=== PATIENT | female | born 1965 | race Caucasian/White ===

== ENCOUNTER → 2020-03-12 16:04 | Outpatient (CLI) | payer OTHER, SELFPAY ==
--- NOTE | ~2020-03-12 | MM_ITS ---
EXAMINATION: MM screening facundo BI w juan carlos HISTORY: Screening TECHNIQUE: Craniocaudal and mediolateral oblique 3-D tomosynthesis images were obtained and synthetic 2-D images were generated. CAD analysis was submitted and interpreted. COMPARISON: Comparison to multiple prior studies sequentially, with oldest reviewed study dated 01/2016. BREAST PARENCHYMAL COMPOSITION: There are scattered areas of fibroglandular density. FINDINGS: There is no evidence of suspicious mass, calcification, or architectural distortion to sugg est malignancy in either breast. There has been no suspicious interval change. IMPRESSION: 1. No mammographic evidence of malignancy. 2. Recommend routine screening mammography in one year. BI-RADS Category 1: Negative Reviewed, dictated and finalized at location A.
== END ==
PROVIDERS: PCP Physician Assistant; Visit Provider Physician Assistant
DX: Z12.31 Encounter for screening mammogram for malignant neoplasm of breast (principal)
CPT/HCPCS: 77063; 77067

== ENCOUNTER → 2020-09-18 07:52 | Outpatient (CLI) | payer OTHER, SELFPAY ==
[2020-09-18 20:45] LABS: SARS-CoV-2 RNA PCR Negative
== END ==
PROVIDERS: PCP Physician Assistant; Visit Provider Podiatrist Foot & Ankle Surgery
DX: Z01.812 Encounter for preprocedural laboratory examination (principal); Z20.822 Contact with and (suspected) exposure to COVID-19
CPT/HCPCS: C9803; U0003; U0005

== ENCOUNTER 2020-09-21 01:24 | Day surgery (SDC) | payer OTHER, SELFPAY ==
[2020-09-18 08:38] VITALS: BMI 29.1
[2020-09-21] VITALS (7 sets, daily range): BP systolic 98–144; BP diastolic 58–75; PULSE 70–122; RESP 16–24; TEMP 36.5–36.8; O2SAT 96–100
--- NOTE | ~2020-09-21 | XR_ITS ---
EXAMINATION: XR surgery orthopedic EXAM DATE: 09/21/2020 12:12 INDICATION: Left ankle ORIF. TECHNIQUE: Fluoroscopy used during left ankle ORIF performed by Dr. Omid Aranda JR MD. Radiol ogist was not present for the imaging or procedure. Total fluoroscopic time of 36 seconds. The DAP for this procedure was 0.02 mGym2. A total of 3 images obtained for the exam. There is no prior primitivo dy for comparison. FINDINGS: Difficult to visualize the left fibular fracture. There is a laterally placed fibular plat e with supporting screws. Also an anchor repairing distal tibiofibular syndesmotic ligament. Alignmen t anatomic. Correlate with procedure note. IMPRESSION: Fluoroscopy used during left fibular ORIF. Reviewed, dictated and finalized at location A.
--- NOTE | 2020-09-21 07:12 | WPDHPUPDATE1 ---
History and Physical Update Update Date/Time: 09/21/20 07:12 History and Physical has been reviewed, including an updated exam of the patient. There are NO changes in the patient's condition. Risks, benefits, and alternatives have been discussed and questions answered. Patient agrees to proceed with procedure.
--- NOTE | 2020-09-21 08:21 | ECG_ITS ---
Measurements Intervals [place] Rate: 77 P: 43 [place]: 167 QRS: 53 QRSD: 97 T: 40 QT: 364 QTc: 413 Interpretive Statements SINUS RHYTHM BORDERLINE R WAVE PROGRESSION, ANTERIOR LEADS BORDERLINE ECG Electronically Signed On 09-21-2020 11:56:16 CDT by Donovan New D.O.
[2020-09-21] MEDS: LACTATED RINGERS 1,000 ML 30 ML IV CONT ×2 (09:12→12:34)
--- NOTE | 2020-09-21 09:47 | WPDANESEPPF ---
Anes - Initial Pre Proc Eval Procedure: Operation Date: 09/21/20 10:30 Proposed Procedures p Open Reduction Internal Fixation Distal Fibular Fracture Left Ankle, Syndesmotic Repair Left Ankle - Omid Aranda JR, MD Date/Time: 09/21/20 09:47 Surgeon: Omid Aranda JR, MD Pre Op Diagnosis: distal fibular fx left with displacement,syndesmot Patient Data Age: 55 Gender: F Height: 5 ft 5 in Weight: 80 kg Last Vital Signs Temp 36.8 C 09/21/20 08:50 Pulse 85 09/21/20 08:50 Resp 18 09/21/20 08:50 BP 107/60 09/21/20 08:50 Pulse Ox 99 09/21/20 08:50 Allergies Allergy/AdvReac Type Severity Reaction Status Date / Time codeine Allergy Severe Rash Verified 09/21/20 09:29 Penicillins Allergy Mild Diarrhea Verified 09/21/20 09:29 Home Medications Medication Instructions Recorded Confirmed Type atorvastatin 20 mg PO HS 09/18/20 09/21/20 History cholecalciferol (vitamin D3) 125 mcg PO DAILY 09/18/20 09/21/20 History [Vitamin D3] citalopram 20 mg PO DAILY 09/18/20 09/21/20 History levothyroxine [Euthyrox] 100 mcg PO DAILY 09/18/20 09/21/20 History lorazepam 0.5 mg PO BID PRN 09/18/20 09/21/20 History multivitamin 1 tablet PO DAILY 09/18/20 09/21/20 History Patient hx anesthesia problems: none Family hx anesthesia problems: none [facility] Past Medical History Medical History Hypothyroidism Overweight Smoker Surgical History Surgical History (Updated 09/21/20 @ 09:48 by Ed Canales MD) Status post lumbar surgery Social History Social History Smoking packs per day: 1 Smoking cigarettes per day: 20.0 Years smoked: 30 Smoking pack-years: 30.00 Smoking status: Current every day smoker Tobacco type: cigarettes Alcohol intake: current Drinks per week: 3 Substance use: current Substance use type: marijuana Other substance usage details: INDICA 5MG IN EVENING Living arrangements: with family Spiritual care concerns: No Anes - Eval Final PreProcedure Day of Procedure 09/21/20 09:47 Patient weight: overweight Heart: regular rate and rhythm Lungs: clear to auscultation Airway: Mallampati scale class II Neurological: alert and oriented Last oral intake: >/= 8 hours ASA classification: III Emergent: no Anesthetic plan: proceed Anesthesia type and monitoring: general ETT and standard monitoring Informed Consent: The patient's anesthetic plan and its attendant risks and benefits were discussed with the patient/family/POA. Questions were solicited and answers provided to the satisfaction of the patient/family/POA.
[2020-09-21] MEDS: ceFAZolin 2 GM/D5W 50 ML 2 GM/50 ML BAG IVPB (10:19)
[2020-09-21] MEDS: BUPIVACAINE HCL 0.5% PF 30 ML VIAL INFILTRATE (10:27)
[2020-09-21] MEDS: KETOROLAC 30 MG/ML VIAL (*BKC) IV PUSH (12:20)
--- NOTE | 2020-09-21 12:38 | PM.OP ---
Procedure Note - Brief Procedure Note - Brief Date of procedure: 09/21/20 Pre-op diagnosis: distal fibular fx left with displacement,syndesmot 1. Distal fibular fracture left ankle 2. Syndesmotic injury left ankle Post-op diagnosis: same Procedure performed: 1. Open reduction with internal fixation of left ankle fracture 2. Syndesmotic repair left ankle Anesthesia: GLMA, GETA and local Surgeon: Omid Aranda JR, DPM Estimated blood loss (mL): 5 Drains: No Packing: No Pathology: none sent Complications: No immediate complications Condition: stable Disposition: same day
--- NOTE | 2020-09-21 15:05 | SUR.PHASEII ---
PATIENT OPTED TO TAKE PERCOCET SOON SHE GETS HOME RATHER THAN TAKE PAIN MED HERE.
--- NOTE | 2020-09-21 16:24 | PM.PROC ---
Procedure Note - Detailed Date of procedure: 09/21/20 Pre-op diagnosis: distal fibular fx left with displacement,syndesmot 1. Displaced distal fibular fracture left ankle 2. Syndesmotic injury left ankle Post-op diagnosis: same Procedure performed: 1. Open reduction with internal fixation of distal fibular fracture left ankle 2. Syndesmotic stabilization left ankle Implants: 1. Arthrex Tightrope system 2. Arthrex 5 hole fibular plate with 3 (2.7 locking) and 3 (3.5mm locking) screws 3. Arthrex 3.5mm Cortical interfragmentary screw Anesthesia: GETA and local Surgeon: Omid Aranda JR, DPM Estimated blood loss (mL): 5 Drains: No Packing: No Pathology: none sent Complications: No immediate complications Condition: stable Disposition: same day Findings: Under mild sedation, the patient was brought in to the operating room, placed on the operating table in the lateral decubitus position. A pneumatic thigh tourniquet was placed about the patient's left thigh. Following general anesthesia, local anesthesia was obtained about the left leg foot utilizing 40 mL of a one to one mix of Exparel with 0.5% Marcaine plain just inferior and posterior to the neck of the fibula and along the medial ankle to block the saphenous nerve. The foot was then scrubbed, prepped, and draped in the usual aseptic manner. An Esmarch bandage was then used to exsanguinate the patient's right foot and ankle and the pneumatic thigh tourniquet was then inflated. An incision was made along the lateral fibula starting along the distal aspect extending aproximately 10cm. The incision was continued deep down through the subcutaneous tissues using sharp and blunt dissection. All bleeders were ligated and cauterized as necessary. I made a periosteal incision exposing the long spiral oblique fracture, there was some shortening and posterior displacent of the distal fibula, I bone reduction clamp was used to reduce the distal fibula bringing it out to lenght. I used an Arthex 3.5 mm cortical screw, utilizing interfragmentary screw technique, to compress the fracture site. Next I utilized an Athrex 5 hole plate along with 3 distal 2.7mm locking screws and 3 proximal 3.5mm locking screws to fixate the neutralization plate. Fluoroscopy was used to make sure the fracture was adequately compressed and distal fibular fracture reduced and finally that the plate was anatomically positioned. The hook test indicated syndesmotic widening so I utilized the Arthrex Tightrope system through the proximal larger 3.5mm screw hole in the 5 hole plate to reduce the syndesmotic diastasis utilizing standard principles and techniques under live fluroscopy. Final images demonstated that the ankle mortise was congruous both medially and laterally with the increase of lateral gutter spaced now reduced compared to pre op. Next, the periosteum was reapproximated with 3-0 Vicryl and the subcutaneous structures were reapproximated and coapted utilizing 4-0 Vicryl. Next, the skin was reapproximated and coapted utilizing 4-0 Monocryl in running subcuticular suture fashion technique. Upon completion of the procedure, the incision was dressed with 1/4 inch Steri Strips, Adaptic, 4x4s, Kerlix, and Coban. The pneumatic thigh tourniquet was then deflated and a prompt hyperemic response was noted to all digits of the affected foot. The posterior splint was then applied. The patient did very well with the procedure and the anesthesia. The patient was transferred to the recovery room with vital signs stable and vascular status intact to all toes of the affected foot. Following a period of postoperative monitoring, the patient will be discharged home on the following written and oral postoperative instructions: 1. The patient should keep the dressing clean, dry, and intact. Use a cast protector bag with showers. 2. The patient will be strictly nonweightbearing with a knee scooter. 3. Patient should ice and elevat
== END 2020-09-21 14:15 | disposition home or self-care (01) ==
PROVIDERS: PCP Physician Assistant; Visit Provider Podiatrist Foot & Ankle Surgery
PROC: (CPT 28485; principal; 2020-09-21 10:30)
DX: S82.832A Other fracture of upper and lower end of left fibula, initial encounter for closed fracture (principal); S93.432A Sprain of tibiofibular ligament of left ankle, initial encounter; W10.1XXA Fall (on)(from) sidewalk curb, initial encounter; F12.90 Cannabis use, unspecified, uncomplicated; E03.9 Hypothyroidism, unspecified; M19.90 Unspecified osteoarthritis, unspecified site; F17.210 Nicotine dependence, cigarettes, uncomplicated
CPT/HCPCS: 27792; 27829; 93005; C1713; C1769; C9290; C9803; J0131; J0690; J1100; J1885; J2250; J2405; J2704; J2710; J3010; J7120; U0003; U0005

== ENCOUNTER → 2021-03-26 12:00 | Outpatient (CLI) | payer OTHER, SELFPAY ==
--- NOTE | ~2021-03-26 | MM_ITS ---
EXAMINATION: MM screening facundo BI w juan carlos HISTORY: Screening mammogram TECHNIQUE: Craniocaudal and mediolateral oblique 3-D tomosynthesis images were obtained and synthetic 2-D images were generated. CAD analysis was submitted and interpreted. COMPARISON: 03/12/2020, 11/11/2018, 05/25/2017 bilateral digital screening mammogram examinations BREAST PARENCHYMAL COMPOSITION: There are scattered areas of fibroglandular density. FINDINGS: There is no evidence of suspicious mass, calcification, or architectural distortion to sugg est malignancy in either breast. There has been no suspicious interval change. IMPRESSION: 1. No mammographic evidence of malignancy. 2. Recommend routine screening mammography in one year. BI-RADS Category 1: Negative Reviewed, dictated and finalized at location A.
--- NOTE | ~2021-03-26 | DEXA_ITS ---
Bone Density Report Name: Nivia Sweet Age: 55 Sex: Female Ethnicity: White Date of : 1965 Indication: postmenopausal; screening for osteoporosis; prior fracture; Referring Provider: ISIDRO BLANCO Study: Bone densitometry was performed. Exam Date: March 26, 2021 Accession number: [id number] Bone Density: Region BMD T-score Z-score Classification AP Spine (L1-L4) 0.833 -1.9 -0.7 Osteopenia Femoral Neck (Left) 0.574 -2.5 -1.3 Osteoporosis Total Hip (Left) 0.694 -2.0 -1.2 Osteopenia Femoral Neck (Right) 0.653 -1.8 -0.6 Osteopenia Total Hip (Right) 0.785 -1.3 -0.5 Osteopenia Total Hip Mean 0.740 -1.7 -0.9 Osteopenia World Health Organization criteria for BMD impression classify patients as: Normal (T-score at or above -1.0), Osteopenia (T-score between -1.0 and -2.5), or Osteoporosis (T-score at or below -2.5). 10-year Fracture Risk: FRAX not reported because: Some T-score for Spine Total or Hip Total or Femoral Neck at or below -2.5 Clinical Information Provided by Patient: Has had a low trauma fracture Smokes Has used the following medications: Vitamin D, MTV, LEVOTHYROXINE Patient maximum height was 65.0 Menopause Age: 45 No regular weight bearing exercise Drinks caffeinated beverages Onset of menses at age 9 Number of children 2 Impression: The patient has established osteoporosis, based on the Left Femoral Neck T-score and the existence of a prior fracture. The patient has risk factors, including: smoking, previous fracture. Discussion: HIGH RISK OF FRACTURE. BONE DENSITY IS UNDESIRABLY LOW AT ONE OR MORE SKELETAL SITES, CONSISTENT WITH POSTMENOPAUSAL OSTEOPOROSIS. This patient's lowest T-score, in a patient who has previously fractured, meets the World Health Organization's (WHO) criteria for severe osteoporosis. In untreated patients, the risk of osteoporotic fracture increases approximately two-fold for each 1.0 SD decrease in T-score. Low bone density is not the only risk factor for fracture; also consider factors such as patient's age, frailty or poor health, risk of falling, risk of injury, previous osteoporotic fracture, family history of osteoporosis, cigarette smoking, low body weight, etc. Not everyone with low bone mineral density has osteoporosis; osteomalacia and other metabolic bone disorders should also be considered. Patients who have osteoporosis should be evaluated for specific diseases and conditions (secondary causes) that may cause or contribute to bone loss. The [place] [employer]ocrinologists (AACE) and National Osteoporosis Foundation (NOF) recommend pharmacologic intervention for all postmenopausal women whose T-score is in this range. The patient should follow a healthful lifestyle (good nutrition with adequate calcium and vitamin D, and
== END ==
PROVIDERS: PCP Physician Assistant; Visit Provider Obstetrics & Gynecology
DX: Z12.31 Encounter for screening mammogram for malignant neoplasm of breast (principal); Z13.820 Encounter for screening for osteoporosis; M81.0 Age-related osteoporosis without current pathological fracture; M85.852 Other specified disorders of bone density and structure, left thigh; M85.88 Other specified disorders of bone density and structure, other site
CPT/HCPCS: 77063; 77067; 77080

== ENCOUNTER 2021-08-12 00:27 | Day surgery (SDC) | payer OTHER, SELFPAY ==
[2021-07-31 14:00] VITALS: BMI 28.2
--- NOTE | 2021-08-11 12:11 | WPDANESEPP ---
Anes - Eval Pre Procedure Procedure: Operation Date: 08/12/21 09:00 Proposed Procedures p Screening Colonoscopy - Ean Balbuena MD Date/Time: 08/11/21 12:11 Pre Op Diagnosis: hx of colon polyps Patient Data Age: 56 Gender: F Height: 1.65 m Weight: 77 kg Allergies Allergy/AdvReac Type Severity Reaction Status Date / Time codeine Allergy Severe Rash, Verified 07/31/21 13:58 Nausea Penicillins Allergy Mild Diarrhea, Verified 07/31/21 13:58 Nausea clarithromycin AdvReac Nausea Verified 07/31/21 13:58 Home Medications Medication Instructions Recorded Confirmed Type atorvastatin 20 mg PO HS 09/18/20 07/31/21 History cholecalciferol (vitamin D3) 125 mcg PO DAILY 09/18/20 07/31/21 History [Vitamin D3] citalopram 20 mg PO DAILY 09/18/20 07/31/21 History levothyroxine [Euthyrox] 100 mcg PO DAILY 09/18/20 07/31/21 History lorazepam 0.5 mg PO BID PRN 09/18/20 07/31/21 History biotin 1 mg capsule 1 mg PO DAILY PRN 11/07/20 07/31/21 History multivitamin 1 tablet PO DAILY PRN 11/07/20 07/31/21 History ibandronate 150 mg tablet 150 mg PO MONTHLY #3 tablet 04/15/21 07/31/21 Rx ibuprofen 800 mg PO Q6H PRN 07/31/21 07/31/21 History Patient hx anesthesia problems: none Family hx anesthesia problems: none Results Review: All pre-operative results and documents have been reviewed as part of the pre-operative evaluation. FORMERLY [facility] Past Medical History Medical History Anxiety Arthritis Degeneration of lumbar intervertebral disc Depression Diverticulitis Elective x2 Herpes zoster Hyperlipidemia Hypothyroidism Vaginal delivery x2 Surgical History Surgical History History of ankle surgery 2020 History of bilateral tubal ligation 1996 Status post lumbar surgery 2017 Family History Family History Father Depression Anxiety Mother Anxiety Depression Thyroid disorder Arthritis Hyperlipidemia Son Anxiety Depression Grandparent Alcoholism Heart problem Mother Family history of elevated blood lipids Family history of thyroid disease Grandparent Diabetes mellitus Family history of alcoholism Father Family history of blood dyscrasia Family history of anemia Social History Social History Smoking packs per day: 1 Smoking cigarettes per day: 20.0 Years smoked: 30 Smoking pack-years: 30.00 Smoking status: Current every day smoker Tobacco type: cigarettes Second hand tobacco smoke exposure: Yes Smoking end date: 06/08/11 Alcohol intake: current Drinks per week: 2 Substance use: current Substance use type: marijuana Other substance usage details: daily Living arrangements: with family Spiritual care concerns: No Exam Day of Procedure 08/11/21 12:11
[2021-08-12 07:55] VITALS: BP 114/62; PULSE 73; RESP 20; TEMP 36.7; O2SAT 97; BMI 27.9
--- NOTE | 2021-08-12 08:12 | WPDANESEFPP ---
Anes - Eval Final PreProcedure Day of Procedure 08/12/21 08:12 Patient weight: overweight Heart: regular rate and rhythm Lungs: clear to auscultation and normal air movement Airway: Mallampati scale class II Neurological: alert and oriented Last oral intake: >/= 8 hours ASA classification: III Emergent: no Anesthetic plan: proceed Anesthesia type and monitoring: general GIVS and standard monitoring Results Review: All pre-operative results and documents have been reviewed as part of the pre-operative evaluation. Informed Consent: The patient's anesthetic plan and its attendant risks and benefits were discussed with the patient/family/POA. Questions were solicited and answers provided to the satisfaction of the patient/family/POA.
[2021-08-12] MEDS: LACTATED RINGERS 1,000 ML 150 ML IV CONT (08:16)
--- NOTE | 2021-08-12 08:38 | PM.HPGS ---
History of Present Illness History of Present Illness Consent: Risks, benefits, and alternatives have been discussed and questions answered. Patient agrees to proceed with procedure. Chief complaint: hx of colon polyps Narrative: Nivia Kelsey is a 56 year old female with colon polyp about 5-6 years ago. Review of Systems Constitutional: Constitutional: Denies headache(s) and Denies weakness Eyes: Eyes: Denies blurry vision ENT: Reports Normal hearing present, Denies headache(s) and Denies neck pain Cardiovascular: Cardiovascular: Denies chest pain and Denies dyspnea Respiratory: Respiratory: Denies dyspnea Gastrointestinal: Gastrointestinal: Reports no additional gastrointestinal complaints Genitourinary: Genitourinary: Denies dysuria Musculoskeletal: Musculoskeletal: Denies neck pain Integumentary/Breasts: Skin/Breast: Denies dry skin Neurologic: Reports Normal hearing present, Denies headache(s) and Denies weakness Psychiatric: Psychiatric: Denies anxiety Endocrine: Endocrine: Denies change in body appearance Hematologic/Lymphatic: Hematologic/Lymphatic: Denies easy bleeding Allergic/Immunologic: Allergic/Immunologic: Denies urticaria PMFSH Past Medical History Medical History (Updated 08/12/21 @ 08:38 by Ean Balbuena MD) Anxiety Arthritis Colon polyp Degeneration of lumbar intervertebral disc Depression Diverticulitis Elective x2 Herpes zoster Hyperlipidemia Hypothyroidism Vaginal delivery x2 Surgical History Surgical History History of ankle surgery 2020 History of bilateral tubal ligation 1996 Status post lumbar surgery 2017 Family History Family History Father Depression Anxiety Mother Anxiety Depression Thyroid disorder Arthritis Hyperlipidemia Son Anxiety Depression Grandparent Alcoholism Heart problem Mother Family history of elevated blood lipids Family history of thyroid disease Grandparent Diabetes mellitus Family history of alcoholism Father Family history of blood dyscrasia Family history of anemia Social History Social History Smoking packs per day: 1 Smoking cigarettes per day: 20.0 Years smoked: 30 Smoking pack-years: 30.00 Smoking status: Current every day smoker Tobacco type: cigarettes Second hand tobacco smoke exposure: Yes Smoking end date: 06/08/11 Alcohol intake: current Drinks per week: 2 Substance use: current Substance use type: marijuana Other substance usage details: daily Living arrangements: with family Spiritual care concerns: No Meds Home Medications and Allergies Home Medications Medication Instructions Recorded Confirmed Type atorvastatin 20 mg PO HS 09/18/20 08/12/21 History cholecalciferol (vitamin D3) 125 mcg PO DAILY 09/18/20 08/12/21 History [Vitamin D3] citalopram 20 mg PO DAILY 09/18/20 08/12/21 History levothyroxine [Euthyrox] 100 mcg PO DAILY 09/18/20 08/12/21 History lorazepam 0.5 mg PO BID PRN 09/18/20 08/12/21 History biotin 1 mg capsule 1 mg PO DAILY PRN 11/07/20 08/12/21 History multivitamin 1 tablet PO DAILY PRN 11/07/20 08/12/21 History ibandronate 150 mg tablet 150 mg PO MONTHLY #3 tablet 04/15/21 08/12/21 Rx ibuprofen 800 mg PO Q6H PRN 07/31/21 08/12/21 History Allergies Allergy/AdvReac Type Severity Reaction Status Date / Time codeine Allergy Severe Rash, Verified 08/12/21 08:04 Nausea Penicillins Allergy Mild Diarrhea, Verified 08/12/21 08:04 Nausea clarithromycin AdvReac Nausea Verified 08/12/21 08:04 Vital Signs Vital Signs - 24 hr 08/12/21 07:55 Temperature 98.1 F Pulse Rate 73 Respiratory Rate 20 Blood Pressure 114/62 Pulse Oximetry 97 Exam Const: General: comfortable and no acute distress HENMT:
[2021-08-12 09:04] VITALS: BP 111/57; PULSE 70; RESP 21; O2SAT 91
[2021-08-12 09:14] VITALS: BP 114/72; PULSE 69; RESP 18; O2SAT 93
[2021-08-12 09:24] VITALS: BP 100/77; PULSE 69; RESP 20; O2SAT 92
== END 2021-08-12 09:38 | disposition home or self-care (01) ==
PROVIDERS: PCP Physician Assistant; Visit Provider Internal Medicine Gastroenterology
PROC: 0DJD8ZZ Inspection of Lower Intestinal Tract, Via Natural or Artificial Opening Endoscopic (ICD-10-PCS; CPT 45378; principal; 2021-08-12 09:00)
DX: Z12.11 Encounter for screening for malignant neoplasm of colon (principal); D12.4 Benign neoplasm of descending colon; D12.3 Benign neoplasm of transverse colon; K57.30 Diverticulosis of large intestine without perforation or abscess without bleeding; M19.90 Unspecified osteoarthritis, unspecified site; M47.816 Spondylosis without myelopathy or radiculopathy, lumbar region; F41.8 Other specified anxiety disorders; K57.92 Diverticulitis of intestine, part unspecified, without perforation or abscess without bleeding; E78.5 Hyperlipidemia, unspecified; E03.9 Hypothyroidism, unspecified; F17.210 Nicotine dependence, cigarettes, uncomplicated; F12.90 Cannabis use, unspecified, uncomplicated
CPT/HCPCS: 45385; 88305; J2704; J7120

== ENCOUNTER 2022-07-03 20:10 | Emergency (ER) | payer OTHER, SELFPAY ==
--- NOTE | ~2022-07-03 | CT_ITS ---
CT Abdomen and Pelvis with contrast. History: Epigastric pain. Spiral CT of the abdomen and pelvis was performed after the administration of intravenous contrast. 1 00 cc of Omnipaque 350 was administered intravenously without complication. Dose reduction technique was used on this scan by utilizing automated exposure control and iterative reconstruction technique. The dose-length product (DLP) was 465.51 mGy-cm. COMPARISON: 01/03/2014 Findings: Scans through the lung bases demonstrate mild atelectatic change. The liver, spleen, pancreas, adrenals and kidneys are within normal limits. Calcified gallstones are present. No evidence of aortic aneurysm. No lymphadenopathy is seen. There is no evidence of bowel obstruction. There is no evidence to suggest acute appendicitis or dive rticulitis. Images through the pelvis were performed. Urinary bladder unremarkable. No adnexal mass evident. No a scites is seen. There is widening with irregularity and erosive change of the left SI joint. There is extensive, dens corinne calcified proliferative process which appears extending from the SI joint extensively into the le ft iliac fossa, as well as posteriorly into the posterior subcutaneous soft tissues. There is irregul ar patchy sclerotic change of the adjacent left iliac bone and left sacral alae. Impression: Unilateral left sacroiliitis with extensive erosive changes as well as extensive calcifying prolifera tive process extending into the left iliac fossa as well as more focally into the posterior subcutane ous soft tissues. Precise diagnosis is unclear. Consider additional workup is indicated, as well as c orrelation with any relevant history or laboratory findings. Cholelithiasis. Reviewed, dictated and finalized at location [facility] Impression: Unilateral left sacroiliitis with extensive erosive changes as well as extensiv e calcifying proliferative process extending into the left iliac fossa as well as more focally into the posterior subcutaneous soft tissues. Precise diagnosis is unclear. Consider additional workup is indicated, as well as correlation wi th any relevant history or laboratory findings. Cholelithiasis.
--- NOTE | 2022-07-03 20:15 | ECG_ITS ---
Measurements Intervals [place] Rate: 93 P: 52 [place]: 154 QRS: 83 QRSD: 89 T: 42 QT: 339 QTc: 422 Interpretive Statements SINUS RHYTHM DELAYED PRECORDIAL R/S TRANSITION BORDERLINE ST-T WAVE ABNORMALITY- DIFFUSE LEADS BASELINE ARTIFACT- I, II, III, AVR, AVL, AVF BORDERLINE ECG COMPARED TO ECG 09/21/2020 10:24:11 NO SIGNIFICANT CHANGES Electronically Signed On 07-03-2022 20:27:46 [employer] by Donovan New D.O.
[2022-07-03 20:16] VITALS: BP 141/87; PULSE 87; RESP 19; TEMP 37; O2SAT 100
[2022-07-03 20:30] LABS: Basophils Absolute Auto 0.1 K/mm3 (0.0-0.1); Eosinophils Absolute Auto 0.1 K/mm3 (0-0.3); Eosinophils Percent Auto 1.4 % (0-4.4); Hematocrit 40.4 % (37.0-47.0); Hemoglobin 13.7 g/dL (12.0-15.0); Immature Granulocyte Absolute 0.03 K/mm3 (0.00-0.031); Immature Granulocyte Percent A 0.4 % (0-0.5); Lymphocytes Absolute Auto 2.18 K/mm3 (0.9-3.2); Lymphocytes Percent Auto 29.9 % (18.3-44.2); Mean Corpuscular HGB Conc 33.9 g/dl (32-36); Mean Corpuscular Hemoglobin 33.3 pg (26-34); Mean Corpuscular Volume 98.3 fl (80-100); Mean Platelet Volume 9.7 fl (7.4-10.4); Monocytes Absolute Auto 0.8 K/mm3 (0.1-0.6); Neutrophils Absolute Auto 4.1 K/mm3 (1.3-6.7); Neutrophils Percent Auto 56.3 % (45.5-73.1); Platelet Count Result 314 k/mm3 (150-375); Red Blood Count 4.11 M/mm3 (4.2-5.4); Red Cell Distribution Width 13.5 % (11.5-14.5); White Blood Count 7.3 K/mm3 (4.5-10.0)
[2022-07-03 20:41] LABS: Alanine Aminotransferase 18 U/L (6-35); Albumin Level 4.4 g/dL (3.5-5.1); Alkaline Phosphatase 83 U/L (38-126); Anion Gap 10 mmol/L (8-16); Aspartate Amino Transferase 22 U/L (14-36); Bilirubin,Total 0.3 mg/dL (0.2-1.3); Blood Urea Nitrogen 9 mg/dL (7-17); Carbon Dioxide 22 mmol/L (22-30); Chloride 106 mmol/L (98-107); Estimated CRCL calculation 74 ml/min; Estimated Glomerular Filt Rate > 60; Glucose 148 mg/dL (65-110); Lipase 28 U/L (23-300); Potassium 3.4 mmol/L (3.4-5.0); Sodium 138 mmol/L (137-145)
[2022-07-03 20:52] LABS: Troponin I < 0.012 ng/mL (0.000-0.034)
[2022-07-03 22:35] VITALS: BP 120/65; PULSE 81; RESP 13; TEMP 36.8; O2SAT 100
--- NOTE | 2022-07-03 23:32 | ED.ABDPAIN ---
HPI - Abdominal Pain General Chief Complaint: Abdominal Pain Stated Complaint: upper abd pain Time Seen by Provider: 07/03/22 23:07 History of Present Illness HPI narrative: Patient is a 56-year-old female here for evaluation of epigastric/periumbilical abdominal pain over the past several hours. Patient states the pain came on after eating a cheese quesadilla at a [employer] restaurant. States that it felt like somebody punched me in the gut . Associated with some nausea but no vomiting. Reports 1 previous similar episode last month that resolved without intervention. The pain has been intermittent in nature ever since, coming in waves, described as a cramp. She denies any constipation, diarrhea, fevers or chills. She has not attempted any medicine for pain. No dysuria, urgency or frequency. Related Data Home Medications Medication Instructions Recorded Confirmed atorvastatin 20 mg tablet 20 mg PO HS 09/18/20 12/05/21 cholecalciferol (vitamin D3) 125 125 mcg PO DAILY 09/18/20 12/05/21 mcg (5,000 unit) tablet (Vitamin D3) citalopram 20 mg tablet 20 mg PO DAILY 09/18/20 12/05/21 levothyroxine 100 mcg tablet 100 mcg PO DAILY 09/18/20 12/05/21 (Euthyrox) lorazepam 0.5 mg tablet 0.5 mg PO BID PRN Anxiety 09/18/20 12/05/21 biotin 1 mg capsule 1 mg PO DAILY PRN other 11/07/20 12/05/21 multivitamin 1 tablet PO DAILY PRN other 11/07/20 12/05/21 ibuprofen 800 mg tablet 800 mg PO Q6H PRN Pain 07/31/21 12/05/21 Allergies Allergy/AdvReac Type Severity Reaction Status Date / Time codeine Allergy Severe Rash, Verified 12/05/21 09:13 Nausea Penicillins Allergy Mild Diarrhea, Verified 12/05/21 09:13 Nausea clarithromycin AdvReac Nausea Verified 12/05/21 09:13 Review of Systems Review of Systems: Gen.: Denies fevers or chills Eyes: Denies eye pain or visual change ENT: Denies congestion Respiratory: Denies shortness of breath or cough CV: Denies chest pain or palpitations GI: Reports abdominal pain and nausea. denies burning, urgency, frequency or hematuria Musculoskeletal: Denies back pain or muscle pain Neuro: Denies numbness, tingling, weakness or focal weakness Skin: Denies rash Except as documented, all other systems reviewed and negative [facility] Past Medical History Medical History Anxiety Arthritis Colon polyp Degeneration of lumbar intervertebral disc Depression Diverticulitis Elective x2 Herpes zoster Hyperlipidemia Hypothyroidism Vaginal delivery x2 Surgical History Surgical History History of ankle surgery 2020 History of bilateral tubal ligation 1996 Status post lumbar surgery 2016 Family History Family History Father Depression Anxiety Mother Anxiety Depression Thyroid disorder Arthritis Hyperlipidemia Son Anxiety Depression Grandparent Alcoholism Heart problem Mother Family history of elevated blood lipids Family history of thyroid disease Grandparent Diabetes mellitus Family history of alcoholism Father Family history of blood dyscrasia Family history of anemia Social History Social History Smoking packs per day: 1 Smoking cigarettes per day: 20.0 Years smoked: 30 Smoking pack-years: 30.00 Smoking status: Current every day smoker Tobacco type: cigarettes Second hand tobacco smoke exposure: Yes Smoking end date: 06/08/11 Alcohol intake: current Drinks per week: 2 Substance use: current Substance use type: marijuana Other substance usage details: daily Living arrangements: with family Spiritual care concerns: No Exam Narrative: APPEARANCE: Well appearing, no pain in distress, well-nourished. Head: Normocephalic and atraumatic. EYES: PERRLA/EOMI, conjunctivae cl
[2022-07-03] MEDS: ONDANSETRON INJ 4 MG/2 ML VIAL IV PUSH (23:53)
[2022-07-03] MEDS: FAMOTIDINE 20 MG/2 ML VIAL IV PUSH (23:53)
[2022-07-03] MEDS: LACTATED RINGERS 1,000 ML 999 ML IV CONT (23:53)
[2022-07-03] MEDS: MORPHINE SULFATE (*CRX) 4 MG/ML INJ IV PUSH (23:54)
[2022-07-04 01:36] VITALS: BP 113/65; PULSE 75; RESP 16; O2SAT 100
[2022-07-04 02:56] LABS: Troponin I < 0.012 ng/mL (0.000-0.034)
== END 2022-07-04 01:36 | disposition home or self-care (01) ==
PROVIDERS: Family Medicine; Emergency Provider Physician Assistant; PCP Physician Assistant
DX: K29.70 Gastritis, unspecified, without bleeding (principal); E78.5 Hyperlipidemia, unspecified; E03.9 Hypothyroidism, unspecified; M19.90 Unspecified osteoarthritis, unspecified site; F41.9 Anxiety disorder, unspecified; F32.A Depression, unspecified; Z86.010 Personal history of colon polyps; Z87.891 Personal history of nicotine dependence; M46.1 Sacroiliitis, not elsewhere classified; R94.31 Abnormal electrocardiogram [ECG] [EKG]; K80.20 Calculus of gallbladder without cholecystitis without obstruction
CPT/HCPCS: 36415; 74177; 80053; 83690; 84484; 85025; 93005; 96361; 96374; 96375; 99284; J0131; J2270; J2405; J7120; Q9967

== ENCOUNTER 2022-08-26 00:13 | Day surgery (SDC) | payer OTHER, SELFPAY ==
[2022-08-13 13:15] VITALS: BMI 28.4
[2022-08-26 07:53] VITALS: BP 102/57; PULSE 91; RESP 18; TEMP 36.5; O2SAT 96
[2022-08-26] MEDS: LACTATED RINGERS 1,000 ML 150 ML IV CONT (08:01)
--- NOTE | 2022-08-26 08:31 | WPDANESEPPF ---
Anes - Initial Pre Proc Eval Procedure: Operation Date: 08/26/22 09:00 Proposed Procedures p Esophagogastroduodenoscopy - Ean Balbuena MD Date/Time: 08/26/22 08:31 Surgeon: Ean Balbuena MD Pre Op Diagnosis: Epigastric pain Patient Data Age: 57 Gender: F Height: 1.65 m Weight: 73.5 kg Last Vital Signs Temp 97.7 F 08/26/22 07:53 Pulse 91 08/26/22 07:53 Resp 18 08/26/22 07:53 BP 102/57 L 08/26/22 07:53 Pulse Ox 96 08/26/22 07:53 O2 Del Method Room Air 08/26/22 07:53 Allergies Allergy/AdvReac Type Severity Reaction Status Date / Time codeine Allergy Severe Rash, Verified 08/26/22 07:52 Nausea Penicillins Allergy Mild Diarrhea, Verified 08/26/22 07:52 Nausea clarithromycin AdvReac Nausea Verified 08/26/22 07:52 Home Medications Medication Instructions Recorded Confirmed Type atorvastatin 20 mg tablet 20 mg PO HS 09/18/20 08/13/22 History cholecalciferol (vitamin D3) 125 125 mcg PO DAILY 09/18/20 08/13/22 History mcg (5,000 unit) tablet (Vitamin D3) citalopram 20 mg tablet 20 mg PO DAILY 09/18/20 08/26/22 History levothyroxine 100 mcg tablet 100 mcg PO DAILY 09/18/20 08/13/22 History (Euthyrox) lorazepam 0.5 mg tablet 0.5 mg PO BID PRN Anxiety 09/18/20 08/13/22 History biotin 1 mg capsule 1 mg PO DAILY PRN other 11/07/20 08/13/22 History multivitamin 1 tablet PO DAILY PRN other 11/07/20 08/13/22 History ibandronate 150 mg tablet (Boniva) 150 mg PO MONTHLY #3 tabs 04/15/21 08/13/22 Rx ibuprofen 800 mg tablet 800 mg PO Q6H PRN Pain 07/31/21 08/13/22 History pantoprazole 20 mg tablet,delayed 20 mg PO HS 4 weeks #28 tabs 07/04/22 08/13/22 Rx release (Protonix) Patient hx anesthesia problems: none Family hx anesthesia problems: none Results Review: All pre-operative results and documents have been reviewed as part of the pre-operative evaluation. [facility] Past Medical History Medical History Anxiety Arthritis Colon polyp Degeneration of lumbar intervertebral disc Depression Diverticulitis Elective x2 Herpes zoster Hyperlipidemia Hypothyroidism Vaginal delivery x2 Surgical History Surgical History History of ankle surgery 2020 History of bilateral tubal ligation 1996 Status post lumbar surgery 2017 Family History Family History Father Depression Anxiety Mother Anxiety Depression Thyroid disorder Arthritis Hyperlipidemia Son Anxiety Depression Grandparent Alcoholism Heart problem Mother Family history of elevated blood lipids Family history of thyroid disease Grandparent Diabetes mellitus Family history of alcoholism Father Family history of blood dyscrasia Family history of anemia Social History Social History Smoking packs per day: 1 Smoking cigarettes per day: 20.0 Years smoked: 35 Smoking pack-years: 35.00 Smoking status: Current every day smoker Tobacco type: cigarettes Second hand tobacco smoke exposure: Yes Smoking end date: 06/08/11 Alcohol intake: current Drinks per week: 2 Substance use: current Substance use type: marijuana Other substance usage details: daily Last use: 08/08/2022 Living arrangements: alone Spiritual care concerns: No Anes - Eval Final PreProcedure Day of Procedure 08/26/22 08:31 Patient weight: normal Heart: regular rate and rhythm Lungs: clear to auscultation Airway: Mallampati scale class II Neurological: alert and oriented Last oral intake: >/= 8 hours ASA classification: III Emergent: no Anesthetic plan: proceed Anesthesia type and monitoring: general GIVS and standard monitoring Results Review: All pre-operative results and documents have been reviewed as p
--- NOTE | 2022-08-26 08:57 | PM.HPGS ---
History of Present Illness History of Present Illness Consent: Risks, benefits, and alternatives have been discussed and questions answered. Patient agrees to proceed with procedure. Chief complaint: Epigastric pain Narrative: Nivia Kelsey is a 57 year old female with intermittent epigastric pain severe enough to go to ER, CT scan showed possible peptic ulcer disease now using protonix, also cholelithiasis and sclerosis in left sacrum (patient had known surgery with infection in that area) Review of Systems Constitutional: Constitutional: Denies headache(s) and Denies weakness Eyes: Eyes: Denies blurry vision ENT: Reports Normal hearing present, Denies headache(s) and Denies neck pain Cardiovascular: Cardiovascular: Denies chest pain and Denies dyspnea Respiratory: Respiratory: Denies dyspnea Gastrointestinal: Gastrointestinal: Reports no additional gastrointestinal complaints Genitourinary: Genitourinary: Denies dysuria Musculoskeletal: Musculoskeletal: Denies neck pain Integumentary/Breasts: Skin/Breast: Denies dry skin Neurologic: Reports Normal hearing present, Denies headache(s) and Denies weakness Psychiatric: Psychiatric: Denies anxiety Endocrine: Endocrine: Denies change in body appearance Hematologic/Lymphatic: Hematologic/Lymphatic: Denies easy bleeding Allergic/Immunologic: Allergic/Immunologic: Denies urticaria PMFSH Past Medical History Medical History (Updated 08/26/22 @ 08:59 by Ean Balbuena MD) Anxiety Arthritis Cholelithiasis Colon polyp Degeneration of lumbar intervertebral disc Depression Diverticulitis Elective x2 Epigastric pain Herpes zoster Hyperlipidemia Hypothyroidism Sacroiliac inflammation Vaginal delivery x2 Surgical History Surgical History History of ankle surgery 2020 History of bilateral tubal ligation 1996 Status post lumbar surgery 2017 Family History Family History Father Depression Anxiety Mother Anxiety Depression Thyroid disorder Arthritis Hyperlipidemia Son Anxiety Depression Grandparent Alcoholism Heart problem Mother Family history of elevated blood lipids Family history of thyroid disease Grandparent Diabetes mellitus Family history of alcoholism Father Family history of blood dyscrasia Family history of anemia Social History Social History Smoking packs per day: 1 Smoking cigarettes per day: 20.0 Years smoked: 35 Smoking pack-years: 35.00 Smoking status: Current every day smoker Tobacco type: cigarettes Second hand tobacco smoke exposure: Yes Smoking end date: 06/08/11 Alcohol intake: current Drinks per week: 2 Substance use: current Substance use type: marijuana Other substance usage details: daily Last use: 08/08/2022 Living arrangements: alone Spiritual care concerns: No Meds Home Medications and Allergies Home Medications Medication Instructions Recorded Confirmed Type atorvastatin 20 mg tablet 20 mg PO HS 09/18/20 08/13/22 History cholecalciferol (vitamin D3) 125 125 mcg PO DAILY 09/18/20 08/13/22 History mcg (5,000 unit) tablet (Vitamin D3) citalopram 20 mg tablet 20 mg PO DAILY 09/18/20 08/26/22 History levothyroxine 100 mcg tablet 100 mcg PO DAILY 09/18/20 08/13/22 History (Euthyrox) lorazepam 0.5 mg tablet 0.5 mg PO BID PRN Anxiety 09/18/20 08/13/22 History biotin 1 mg capsule 1 mg PO DAILY PRN other 11/07/20 08/13/22 History multivitamin 1 tablet PO DAILY PRN other 11/07/20 08/13/22 History ibandronate 150 mg tablet (Boniva) 150 mg PO MONTHLY #3 tabs 04/15/21 08/13/22 Rx ibuprofen 800 mg tablet 800 mg PO Q6H PRN Pain 07/31/21 08/13/22 History pantoprazole 20 mg tablet,delayed 20 mg PO HS 4 weeks #28 tabs 07/04/22 08/13/22 Rx release (P
[2022-08-26] MEDS: BENZOCAINE (*SP) 60 ML SPRAY CAN (HURRICAINE) 1 SPRAY MUCOUS MEM (09:01)
[2022-08-26 09:10] VITALS: BP 82/48; PULSE 73; RESP 20; O2SAT 95
[2022-08-26 09:20] VITALS: BP 104/64; PULSE 90; RESP 20; O2SAT 97
[2022-08-26 09:30] VITALS: BP 94/58; PULSE 76; RESP 20; O2SAT 97
== END 2022-08-26 09:39 | disposition home or self-care (01) ==
PROVIDERS: PCP Physician Assistant; Visit Provider Internal Medicine Gastroenterology
PROC: 0DJ08ZZ Inspection of Upper Intestinal Tract, Via Natural or Artificial Opening Endoscopic (ICD-10-PCS; CPT 43235; principal; 2022-08-26 09:00)
DX: K29.50 Unspecified chronic gastritis without bleeding (principal); K80.20 Calculus of gallbladder without cholecystitis without obstruction; M46.1 Sacroiliitis, not elsewhere classified; E03.9 Hypothyroidism, unspecified; E78.5 Hyperlipidemia, unspecified; F32.A Depression, unspecified; F41.9 Anxiety disorder, unspecified; F17.210 Nicotine dependence, cigarettes, uncomplicated; F12.90 Cannabis use, unspecified, uncomplicated
CPT/HCPCS: 43239; 88305; J2704; J7120

== ENCOUNTER 2022-10-29 08:29 | Emergency (ER) | payer OTHER, SELFPAY ==
--- NOTE | ~2022-10-29 | XR_ITS ---
EXAMINATION: XR chest 1V portable 10/29/2022 10:20 INDICATION: Epigastric pain PROCEDURE: AP portable chest COMPARISON: 05/27/2013 FINDINGS: The lungs are clear. The cardiomediastinal silhouette is within normal limits. There are no pleural effusions. There is no pneumothorax suspected. IMPRESSION: 1: NO ACUTE CARDIOPULMONARY DISEASE. Reviewed, dictated and finalized at location B.
--- NOTE | ~2022-10-29 | US_ITS ---
EXAMINATION: US right upper quadrant DATE: 10/29/2022 11:58 INDICATION: Right upper quadrant abdominal pain. TECHNIQUE: Multiple grayscale and Doppler ultrasound images of the abdomen were obtained. COMPARISON: CT abdomen and pelvis 10/29/2022 FINDINGS: The visualized portions of the head and body of the pancreas are normal. The liver is christiano l by focal lesion. There is normal flow in main portal vein. The gallbladder is normal in size. No ga llstones. Gallbladder wall thickening is noted. There is no sonographic Greer sign. The common duct is normal and measures 4 mm. IMPRESSION: 1. Gallbladder wall thickening, consistent with chronic cholecystitis. Given the CT findings, conside r hepatobiliary scintigraphy if there is clinical concern for acute cholecystitis. Reviewed, dictated and finalized at location A. IMPRESSION: 1. Gallbladder wall thickening, consistent with chronic cholecystitis. Given th e CT findings, consider hepatobiliary scintigraphy if there is clinical concern for acute cholecystitis.
--- NOTE | ~2022-10-29 | CT_ITS ---
EXAMINATION: CT abdomen pelvis w con DATE: 10/29/2022 10:27 INDICATION: Abdominal pain TECHNIQUE: Computed tomography (CT) of the abdomen and pelvis was performed with 100 mL Omnipaque-350 intravenous contrast. Automated exposure control and iterative reconstruction technique were employe d. The dose-length product was 477.00 mGy-cm. COMPARISON: None FINDINGS: Mild dependent atelectasis in the right lower lobe, minimal on the left. Heart size is normal. No per icardial or pleural effusion. Atherosclerotic coronary artery calcification. No pericardial or pleura l effusion. Porcelain gallbladder with peripheral mural calcification at the fundus. There are also t iny calcified gallstones layering in the dependent neck of the gallbladder as well as a 3 mm gallston e at the cystic duct. No gallbladder dilation or pericholecystic inflammatory stranding to suggest ac cherie cholecystitis. A few scattered tiny pancreatic parenchymal calcification is likely sequela of chr onic pancreatitis. Spleen, bilateral adrenal glands and kidneys are normal. There is moderate colonic diverticulosis with a sigmoid and descending colon predominance. There is no adjacent inflammatory change to suggest diverticulitis. Small bowel and appendix are normal. Bladder, anteverted uterus and bilateral adnexa are unremarkable. No free intraperitoneal gas or fluid. No pathologically enlarged abdominal or pelvic lymphadenopathy. There is calcified atherosclerosis of the aorta and many of the other arteries. Again seen is prominent erosive arthritis at the left sacroiliac joint with multiple globular regions of calcific density extending within the erosions at the sacral and iliac sides of t he joint space as well as into the adjacent soft tissues most prominently anteriorly within the left iliac is muscle and to lesser degree posteriorly in the subcutaneous fat overlying the left posterior iliac spine. Mild osteoarthritis at the contralateral right sacral iliac joint. Osteitis pubis. IMPRESSION: 1. Porcelain gallbladder and cholelithiasis including 3 mm stone in the cystic duct but without evide nt gallbladder wall thickening. If there is clinical concern for acute cholecystitis could consider H SIMON scan for further evaluation. 2. Prominent unilateral necrosis left sacroiliitis with associated globular deposits of calcific dens ity. Appearance most suggestive of gout. If clinically indicated could consider ultrasound-guided bio psy of one of the calcified nodules posterior to the left iliac spine. 3. Diverticulosis. Reviewed, dictated and finalized at location A. IMPRESSION: 1. Porcelain gallbladder and cholelithiasis including 3 mm stone in the cystic duct but without evident gallbladder wall thickening. If there is clinical conc iraj for acute cholecystitis could consider HIDA scan for further evaluation. 2. Prominent unilateral necrosis left sacroiliitis with associated globular dep osits of calcific density. Appearance most suggestive of gout. If clinically in dicated could consider ultrasound-guided biopsy of one of the calcified nodules posterior to the left iliac spine. 3. Diverticulosis.
[2022-10-29 08:42] VITALS: BP 102/53; PULSE 85; RESP 20; TEMP 36.3; O2SAT 96
[2022-10-29 09:11] LABS: Basophils Absolute Auto 0.1 K/mm3 (0.0-0.1); Basophils Percent Auto 0.7 % (0.2-1.2); Eosinophils Absolute Auto 0.1 K/mm3 (0-0.3); Eosinophils Percent Auto 0.8 % (0-4.4); Hematocrit 39.6 % (37.0-47.0); Hemoglobin 13.5 g/dL (12.0-15.0); Immature Granulocyte Absolute 0.06 K/mm3 (0.00-0.031); Immature Granulocyte Percent A 0.7 % (0-0.5); Lymphocytes Absolute Auto 1.54 K/mm3 (0.9-3.2); Lymphocytes Percent Auto 17.1 % (18.3-44.2); Mean Corpuscular HGB Conc 34.1 g/dl (32-36); Mean Corpuscular Hemoglobin 33.3 pg (26-34); Mean Corpuscular Volume 97.5 fl (80-100); Mean Platelet Volume 9.7 fl (7.4-10.4); Monocytes Absolute Auto 0.7 K/mm3 (0.1-0.6); Monocytes Percent Auto 8.1 % (2.6-8.5); Neutrophils Absolute Auto 6.6 K/mm3 (1.3-6.7); Neutrophils Percent Auto 72.6 % (45.5-73.1); Platelet Count Result 335 k/mm3 (150-375); Red Blood Count 4.06 M/mm3 (4.2-5.4); Red Cell Distribution Width 13.8 % (11.5-14.5)
[2022-10-29 09:13] LABS: Appearance Urine Clear (Clear); Bilirubin Urine Negative (Negative); Blood Urine Negative (Negative); Color Urine Yellow (Yellow); Glucose Urine UA Negative (Negative); Ketones Urine Negative (Negative); Leukocyte Esterase Ur Negative LEU/UL (Negative); Nitrate Urine Negative (Negative); Protein Urine Negative (Negative); Specific Grav Ur 1.022 (1.001-1.035); Urobilinogen Urine 0.2 mg/dL (<2.0); pH Urine 5.5 (5.0-9.0)
[2022-10-29 09:16] LABS: Add Urine Microscopic? NO
[2022-10-29 09:23] LABS: Alanine Aminotransferase 17 U/L (6-35); Albumin Level 4.4 g/dL (3.5-5.1); Alkaline Phosphatase 107 U/L (38-126); Anion Gap 8 mmol/L (8-16); Aspartate Amino Transferase 22 U/L (14-36); Bilirubin,Total 0.3 mg/dL (0.2-1.3); Blood Urea Nitrogen 17 mg/dL (7-17); Calcium 8.8 mg/dL (8.4-10.2); Carbon Dioxide 24 mmol/L (22-30); Chloride 106 mmol/L (98-107); Estimated CRCL calculation 67 ml/min; Estimated Glomerular Filt Rate > 60; Glucose 120 mg/dL (65-110); Lipase 34 U/L (23-300); Potassium 4.1 mmol/L (3.4-5.0); Sodium 138 mmol/L (137-145)
--- NOTE | 2022-10-29 09:46 | ECG_ITS ---
Measurements Intervals [place] Rate: 61 P: -6 [place]: 156 QRS: 61 QRSD: 89 T: 59 QT: 387 QTc: 390 Interpretive Statements SINUS RHYTHM NONSPECIFIC T-WAVE ABNORMALITY- ANTERIOR LEADS BORDERLINE ECG COMPARED TO ECG 07/03/2022 20:24:05 NO SIGNIFICANT CHANGES Electronically Signed On 10-29-2022 10:27:58 CDT by Donovan New D.O.
[2022-10-29] MEDS: ONDANSETRON INJ 4 MG/2 ML VIAL IV PUSH (10:05)
[2022-10-29] MEDS: SODIUM CHLORIDE 0.9% IV 1,000 ML 999 ML IV CONT (10:05)
[2022-10-29] MEDS: PANTOPRAZOLE SODIUM IV 40 MG VIAL IV PUSH (10:05)
[2022-10-29] MEDS: BELLADONNA ALK/PHENOB ELIX 10 ML, MAG HYDROX/ALUMINUM HYD/SIMETH 30 ML, LIDOCAINE HCL 2... PO (10:06)
[2022-10-29 10:20] LABS: Troponin I < 0.012 ng/mL (0.000-0.034)
[2022-10-29 12:10] VITALS: BP 115/72; PULSE 62; RESP 19; O2SAT 97
--- NOTE | 2022-10-29 12:39 | ED.ABDPAIN ---
HPI - Abdominal Pain General Chief Complaint: Abdominal Pain Stated Complaint: severe abdominal pain Time Seen by Provider: 10/29/22 09:04 History of Present Illness HPI narrative: 57-year-old female with a history of cholelithiasis and gastritis reports for evaluation of epigastric abdominal pain that started at 4 AM this morning. Patient states she was sleeping and the pain woke her up, rates the pain 10/10. She is rating the pain a 4/10 now. States it is a sharp burning sensation that is in her Epigastrium and radiates up to the lower xiphoid. She reports associated nausea. Denies fever, body aches, chills, vomiting, hematemesis or hematochezia, melena, back pain, chest pain or shortness of breath. She was seen in the ED in June, diagnosed with gastritis and advised to follow-up for an EGD. Patient states she has not had her follow-up appointment with GI, Dr. Balbuena, regarding her EGD results yet. She is currently taking Protonix daily. Per chart review, EGD reveals mild chronic gastritis, no H. pylori or histologic abnormality. Last bowel movement was this morning and normal. Related Data Home Medications Medication Instructions Recorded Confirmed atorvastatin 20 mg tablet 20 mg PO HS 09/18/20 08/13/22 cholecalciferol (vitamin D3) 125 125 mcg PO DAILY 09/18/20 08/13/22 mcg (5,000 unit) tablet (Vitamin D3) citalopram 20 mg tablet 20 mg PO DAILY 09/18/20 08/26/22 levothyroxine 100 mcg tablet 100 mcg PO DAILY 09/18/20 08/13/22 (Euthyrox) lorazepam 0.5 mg tablet 0.5 mg PO BID PRN Anxiety 09/18/20 08/13/22 biotin 1 mg capsule 1 mg PO DAILY PRN other 11/07/20 08/13/22 multivitamin 1 tablet PO DAILY PRN other 11/07/20 08/13/22 ibuprofen 800 mg tablet 800 mg PO Q6H PRN Pain 07/31/21 08/13/22 Allergies Allergy/AdvReac Type Severity Reaction Status Date / Time codeine Allergy Severe Rash, Verified 10/29/22 08:46 Nausea Penicillins AdvReac Mild Diarrhea, Verified 10/29/22 08:46 Nausea clarithromycin AdvReac Nausea Verified 10/29/22 08:46 Review of Systems Review of Systems: CONSTITUTIONAL: Denies fever, chills EYES: Denies visual changes, redness, or discharge. ENT: Denies rhinorrhea, congestion, sore throat, or otalgia. CARDIOVASCULAR: See HPI RESPIRATORY: Denies cough or dyspnea. GASTROINTESTINAL: See HPI GENITOURINARY: Denies dysuria or hematuria. SKIN: Denies rash or itching. MUSCULOSKELETAL: Denies back pain, joint pain, or myalgia. NEUROLOGIC: Denies headache, numbness, dizziness, or weakness. PSYCHIATRIC: Denies anxiety or depression. [facility] Past Medical History Medical History Anxiety Arthritis Cholelithiasis Colon polyp Degeneration of lumbar intervertebral disc Depression Diverticulitis Elective x2 Epigastric pain Herpes zoster Hyperlipidemia Hypothyroidism Sacroiliac inflammation Vaginal delivery x2 Surgical History Surgical History History of ankle surgery 2020 History of bilateral tubal ligation 1996 Status post lumbar surgery 2017 Family History Family History Father Depression Anxiety Mother Anxiety Depression Thyroid disorder Arthritis Hyperlipidemia Son Anxiety Depression Grandparent Alcoholism Heart problem Mother Family history of elevated blood lipids Family history of thyroid disease Grandparent Diabetes mellitus Family history of alcoholism Father Family history of blood dyscrasia Family history of anemia Social History Social History Smoking packs per day: 1 Smoking cigarettes per day: 20.0 Years smoked: 35 Smoking pack-years: 35.00 Smoking status: Current every day smoker Tobacco type: cigarettes Second hand tobacco smoke exposure: Yes Smoking end date: 06/08
[2022-10-29 13:00] VITALS: BP 106/64; PULSE 63; RESP 16; O2SAT 100
== END 2022-10-29 13:10 | disposition home or self-care (01) ==
PROVIDERS: Emergency Medicine; Emergency Provider Physician Assistant; PCP Physician Assistant
DX: K80.44 Calculus of bile duct with chronic cholecystitis without obstruction (principal); R10.13 Epigastric pain; E78.5 Hyperlipidemia, unspecified; E03.9 Hypothyroidism, unspecified; M19.90 Unspecified osteoarthritis, unspecified site; F32.A Depression, unspecified; F41.9 Anxiety disorder, unspecified; Z86.010 Personal history of colon polyps; F17.210 Nicotine dependence, cigarettes, uncomplicated; R94.31 Abnormal electrocardiogram [ECG] [EKG]; K57.90 Diverticulosis of intestine, part unspecified, without perforation or abscess without bleeding; M46.1 Sacroiliitis, not elsewhere classified
CPT/HCPCS: 36415; 71045; 74177; 76705; 80053; 81003; 83690; 84484; 85025; 93005; 96361; 96374; 96375; 99284; A9270; C9113; J2405; J7030; Q9967

== ENCOUNTER → 2022-10-31 12:57 | Outpatient (CLI) | payer OTHER, SELFPAY ==
--- NOTE | ~2022-10-31 | MM_ITS ---
EXAMINATION: MM screening [facility] BI w juan carlos HISTORY: Screening mammogram TECHNIQUE: Craniocaudal and mediolateral oblique 3-D tomosynthesis images were obtained and synthetic 2-D images were generated. CAD analysis was submitted and interpreted. COMPARISON: 03/26/2021, 03/12/2020, 11/11/2018 BREAST PARENCHYMAL COMPOSITION: There are scattered areas of fibroglandular density. FINDINGS: No suspicious mass, calcification, or architectural distortion are identified in either mireya ast to suggest malignancy. There has been no suspicious interval change. IMPRESSION: 1. No mammographic evidence of malignancy. 2. Recommend routine screening mammography in one year. BI-RADS Category 1: Negative Reviewed, dictated and finalized at location A.
== END ==
PROVIDERS: PCP Physician Assistant; Visit Provider Obstetrics & Gynecology
DX: Z12.31 Encounter for screening mammogram for malignant neoplasm of breast (principal)
CPT/HCPCS: 77063; 77067

== ENCOUNTER 2022-11-19 12:32 | Outpatient (CLI) | payer OTHER, SELFPAY ==
[2022-11-20 09:03] LABS: Amylase 59 U/L (30-110)
== END 2022-11-19 12:33 | disposition home or self-care (01) ==
LOC: ANHSURGERY 17:07
PROVIDERS: PCP Physician Assistant; Visit Provider Surgery
DX: K80.10 Calculus of gallbladder with chronic cholecystitis without obstruction (principal); Z01.818 Encounter for other preprocedural examination
CPT/HCPCS: 36415; 82150; 86850; 86900; 86901

== ENCOUNTER 2022-11-24 01:45 | Day surgery (SDC) | payer OTHER, SELFPAY ==
[2022-11-14 13:02] VITALS: BMI 26.9
--- NOTE | 2022-11-14 13:07 | PC.NURSE ---
Report to the Outpatient Waiting Room, entrance under the green pavilion located off [facility], at time 6:00 on date 11/24/22. Planned Procedure Time: 7:30. Time changes happen often and if your time is changed the preop area will call you the afternoon before. - You and your visitor will be asked to self-screen and do not enter if you have any COVID symptoms. - A mask is optional within the hospital at this time. Patients may have clear liquids (water, carbonated beverages, clear teas, apple juice) until 3 hours prior to surgery (4:30) with a maximum of 20 ounces. - No food from midnight until time of surgery Take the following medications with a SIP of water the morning of surgery: CITALOPRAM, LEVOTHYROXINE, LORAZEPAM IF NEEDED DO NOT STOP ANY OF YOUR OTHER PRESCRIPTION MEDICATIONS PRIOR TO SURGERY ?EXCEPT THE FOLLOWING Medications to discontinue per physician: VITAMINS/SUPPLEMENTS Date to take last dose: 11/20/22 Please no make-up, nail turkmen, hairspray, perfume, deodorant, or body powder the day of surgery. No jewelry (including any body piercings) or valuables the day of surgery, leave them at home. Please take a shower or bath the night before, or the morning of, surgery with an antibacterial soap (HIBICLENS). Wear comfortable, loose fitting clothing. - Jewelry must be removed prior to entering the operating room. Rings and piercings that are not removed may be cut off. - The hospital will not accept responsibility for valuables. - Please leave all valuables, including medications, at home the day of surgery. If you are going home after surgery, a licensed water taxi driver must drive you home. - NO public transportation without another adult if you receive anesthesia. - We recommend that an adult stay with you for 24 hours following discharge. - We also recommend that you do not drive, make important decision, drink alcoholic beverages, or take any drugs that were not prescribed by your health care provider for at least 24 hours after your discharge time. Follow any additional instructions given to you from your surgeon. If you or anyone in your household have experienced Covid symptoms in the past week, please notify your surgeon or the nurse liaison at the phone number below for possible testing. Telephone instructions given to PT - ROBERT FERNANDO and asked if any additional questions and then verbalized understanding. Patient advised to call surgeon office or pre surgery nurse liaison [phone] if any additional questions.
[2022-11-24] VITALS (8 sets, daily range): BP systolic 100–136; BP diastolic 57–99; PULSE 74–93; RESP 16–24; TEMP 36.2–36.9; O2SAT 92–100; BMI 27.1
--- NOTE | 2022-11-24 07:08 | WPDANESEPPF ---
Anes - Initial Pre Proc Eval Procedure: Operation Date: 11/24/22 07:30 Proposed Procedures p Laparoscopic Cholecystectomy, Possible Open - Henry Osei MD Date/Time: 11/24/22 07:08 Surgeon: Henry Osei MD Pre Op Diagnosis: Chr Cholecystitis with Gallstones Patient Data Age: 57 Gender: F Height: 1.65 m Weight: 73.5 kg Allergies Allergy/AdvReac Type Severity Reaction Status Date / Time codeine Allergy Severe Rash, Verified 11/24/22 07:07 Nausea Penicillins AdvReac Mild Diarrhea, Verified 11/24/22 07:07 Nausea clarithromycin AdvReac Nausea Verified 11/24/22 07:07 Home Medications Medication Instructions Recorded Confirmed Type atorvastatin 20 mg tablet 20 mg PO HS 09/18/20 11/24/22 History cholecalciferol (vitamin D3) 125 125 mcg PO DAILY 09/18/20 11/24/22 History mcg (5,000 unit) tablet (Vitamin D3) citalopram 20 mg tablet 20 mg PO DAILY 09/18/20 11/24/22 History levothyroxine 100 mcg tablet 100 mcg PO DAILY 09/18/20 11/24/22 History (Euthyrox) lorazepam 0.5 mg tablet 0.5 mg PO BID PRN Anxiety 09/18/20 11/24/22 History biotin 1 mg capsule 1 mg PO DAILY PRN other 11/07/20 11/14/22 History multivitamin 1 tablet PO DAILY PRN other 11/07/20 11/24/22 History ibandronate 150 mg tablet (Boniva) 150 mg PO MONTHLY #3 tabs 04/15/21 11/24/22 Rx ibuprofen 800 mg tablet 800 mg PO Q6H PRN Pain 07/31/21 11/24/22 History pantoprazole 20 mg tablet,delayed 20 mg PO HS 1 month #30 tabs 08/26/22 11/24/22 Rx release (Protonix) ondansetron 4 mg disintegrating 4 mg PO Q8H #14 tabs 10/29/22 11/24/22 Rx tablet fexofenadine 180 mg tablet 180 mg PO DAILY 11/14/22 11/24/22 History Patient hx anesthesia problems: none Family hx anesthesia problems: none Results Review: All pre-operative results and documents have been reviewed as part of the pre-operative evaluation. FOR[facility]LY [facility] Past Medical History Medical History Anxiety Arthritis Cholelithiasis Colon polyp Degeneration of lumbar intervertebral disc Depression Diverticulitis Elective x2 Epigastric pain Herpes zoster Hyperlipidemia Hypothyroidism Sacroiliac inflammation Vaginal delivery x2 Surgical History Surgical History History of ankle surgery 2020 History of bilateral tubal ligation 1996 Status post lumbar surgery 2017 Family History Family History Father Depression Anxiety Mother Anxiety Depression Thyroid disorder Arthritis Hyperlipidemia Son Anxiety Depression Grandparent Alcoholism Heart problem Mother Family history of elevated blood lipids Family history of thyroid disease Grandparent Diabetes mellitus Family history of alcoholism Father Family history of blood dyscrasia Family history of anemia Social History Social History Smoking packs per day: 1 Smoking cigarettes per day: 20.0 Years smoked: 40 Smoking pack-years: 40.00 Smoking status: Current every day smoker Tobacco type: cigarettes Second hand tobacco smoke exposure: Yes Smoking end date: 06/08/11 Alcohol intake: current Drinks per week: 2 Alcohol use details: 4 EVERY 2 WEEKS Substance use: current Substance use type: marijuana Other substance usage details: daily Last use: 08/08/2022 Living arrangements: with family Occupation/Education: occupation Additional occupation/education comments: Lead Technician Spiritual care concerns: No Anes - Eval Final PreProcedure Day of Procedure 11/24/22 07:08 Patient weight: normal Heart: regular rate and rhythm Lungs: clear to auscultation Airway: Mallampati scale class II Neurological: alert and oriented Last oral intake: >/= 8 hours ASA classification: III Emergent: no Anesthetic plan: proc
[2022-11-24] MEDS: KETOROLAC 15 MG/ML VIAL (*BKC) IV PUSH ×2 (07:09→08:16)
[2022-11-24] MEDS: CHLORHEXIDINE GLUCONATE 4% SOL 120 ML BTL 1 APPLIC TOPICAL (07:09)
[2022-11-24] MEDS: ACETAMINOPHEN 500 MG TABLET 1000 MG PO (07:09)
--- NOTE | 2022-11-24 07:32 | WPDHPUPDATE1 ---
History and Physical Update Update Date/Time: 11/24/22 07:32 History and Physical has been reviewed, including an updated exam of the patient. There are NO changes in the patient's condition. Risks, benefits, and alternatives have been discussed and questions answered. Patient agrees to proceed with procedure.
[2022-11-24] MEDS: ceFAZolin 2 GM/D5W 50 ML 2 GM/50 ML BAG IVPB (07:37)
[2022-11-24] MEDS: LACTATED RINGERS 1,000 ML 30 ML IV CONT ×2 (07:43→08:40)
[2022-11-24] MEDS: BUPivacaine HCL 0.5% PF 30 ML VIAL INFILTRATE (08:18)
[2022-11-24] MEDS: LIDO 1%/EPINEPHRINE 1:100,000 50 ML VIAL 30 ML INFILTRATE (08:19)
--- NOTE | 2022-11-24 08:38 | W.PM.PROC2 ---
Procedure Note - Detailed Date of Procedure 11/24/22 Pre-op Diagnosis Chronic Cholecystitis with Gallstones Post-op Diagnosis Same Procedure Performed Laparoscopic cholecystectomy Surgeon Henry Osei MD Anesthesia General Indications Patient is a 57-year-old female who presented with complaints of epigastric right upper quadrant abdominal pain made worse with eating. Fatty foods were particularly troublesome. Gallbladder imaging showed evidence of calcification of the gallbladder wall suggesting possible porcelain gallbladder. There was a small gallstone within the cystic duct of the gallbladder. She presents now for elective laparoscopic cholecystectomy. Findings Mild to moderate chronic thickening of the gallbladder wall. No acute inflammatory changes. Chronic cholecystitis was noted. Description of Procedure After informed consent was obtained patient brought to the operating room where she was placed supine position and general endotracheal anesthesia was administered. The abdomen was then prepped and draped in usual sterile fashion. A time-out was then performed correctly identifying the patient as well as procedure to be performed. She was given Ancef for perioperative IV antibiotics. I 1st started by making a small incision left upper quadrant and then utilizing a 5mm Optiview port and the abdomen with a direct optical insertion. Once inside the abdomen insufflated to adequate pneumoperitoneum of 15mmHg CO2. Looking in the area the umbilicus there were no adhesions areas of the I placed a 5mm periumbilical trocar port and then a 10mm epigastric trocar port 2 right lateral subcostal 5mm trocar ports all under direct visualization. The gallbladder was visualized and it was chronically inflamed claimed with some thickening of the gallbladder wall but no adhesions of the duodenum, stomach, or omentum to the gallbladder wall. The gallbladder was held with a laparoscopic grasper at the dome of the gallbladder was elevated over the right half of the liver towards the right shoulder. A 2nd laparoscopic grasper is used all the gallbladder at the infundibulum. Then with lateral traction the gallbladder infundibulum lies proceed to strip down the visceral peritoneum and fatty tissue around the infundibular gallbladder. This exposed the cystic duct and then was dissected out circumferentially. The cystic artery was identified was dissected circumferentially as well. The posterior wall the gallbladder at the infundibulum dissected free of the liver into the critical view was obtained. I then stripped the cystic duct to make sure there were no gallstones within the cystic duct. Two clips were then placed on the cystic duct proximally 1 clip distally high on infundibular gallbladder. The cystic duct was divided with Endo Wyatt. A similar fashion cystic artery was clipped and divided as well. The gallbladder was then resected off the liver utilize electrocautery without spilling any bile or any gallstones. Once the gallbladder was free from liver is placed in Endo-Catch bag and brought out the epigastric port site. The gallbladder and contents were sent to pathology for examination. I then irrigated out the right upper quadrant the abdomen gallbladder fossa with copious sterile saline solution. Hemostasis was excellent there is no evidence of bile leak. I then aspirated the fluid from the right upper quadrant the abdomen from the pelvis. I removed the trocar ports under visualization all port sites appeared hemostatic. I then allowed the abdomen decompressed. I then irrigated out the port sites and they were hemostatic. I then closed the epigastric 10mm trocar port fascial defect utilizing 0 Vicryl suture placed in a figure-eight fashion. The skin edges all the port sites were then approximated utilizing a running subcuticular 4 Monocryl suture. Incisions were then cleaned and then skin glue was applied to the incisions. The patient tolerated th
[2022-11-24] MEDS: ONDANSETRON INJ 4 MG/2 ML VIAL IV PUSH (09:10)
== END 2022-11-24 10:27 | disposition home or self-care (01) ==
PROVIDERS: PCP Physician Assistant; Visit Provider Surgery
PROC: 0FT44ZZ Resection of Gallbladder, Percutaneous Endoscopic Approach (ICD-10-PCS; CPT 47562; principal; 2022-11-24 07:30)
DX: K80.10 Calculus of gallbladder with chronic cholecystitis without obstruction (principal); E78.5 Hyperlipidemia, unspecified; E03.9 Hypothyroidism, unspecified; F41.9 Anxiety disorder, unspecified; F32.A Depression, unspecified; F17.210 Nicotine dependence, cigarettes, uncomplicated; F12.90 Cannabis use, unspecified, uncomplicated
CPT/HCPCS: 47562; 36415; 82150; 86850; 86900; 86901; 88304; A9270; C1713; J0690; J1100; J1885; J2250; J2405; J2704; J3010; J7030; J7120

== ENCOUNTER 2025-01-19 09:11 | Outpatient (CLI) | payer BC, SELFPAY ==
--- NOTE | ~2025-01-19 | MM_ITS ---
EXAMINATION: MM screening facundo BI w juan carlos HISTORY: Screening TECHNIQUE: Craniocaudal and mediolateral oblique 3-D tomosynthesis images were obtained and synthetic 2-D images were generated. CAD analysis was submitted and interpreted. COMPARISON: Comparison to multiple prior studies sequentially, with oldest reviewed study dated 01/2016. BREAST PARENCHYMAL COMPOSITION: Not dense: There are scattered areas of fibroglandular density. FINDINGS: There is no evidence of suspicious mass, calcification, or architectural distortion to sugg est malignancy in either breast. There has been no suspicious interval change. IMPRESSION: 1. No mammographic evidence of malignancy. 2. Recommend routine screening mammography in one year. BI-RADS Category 1: Negative Reviewed, dictated and finalized at location A.
--- NOTE | ~2025-01-19 | DEXA_ITS ---
Bone Density Report Name: AUGUSTINA LENZ Age: 59 Sex: Female Ethnicity: White Date of : 1965 Indication: osteopenia; monitoring treatment; Referring Provider: ISIDRO BLANCO Study: Bone densitometry was performed. Exam Date: January 19, 2025 Accession number: [id number] Bone Density: Region BMD T-score Z-score Classification AP Spine(L1-L4) 0.841 -1.9 -0.4 Osteopenia Femoral Neck (Left) 0.524 -2.9 -1.6 Osteoporosis Total Hip (Left) 0.634 -2.5 -1.5 Osteoporosis Femoral Neck (Right) 0.645 -1.8 -0.5 Osteopenia Total Hip (Right) 0.773 -1.4 -0.4 Osteopenia Total Hip Mean 0.703 -2.0 -1.0 Osteopenia World Health Organization criteria for BMD impression classify patients as: Normal (T-score at or above -1.0), Osteopenia (T-score between -1.0 and -2.5), or Osteoporosis (T-score at or below -2.5). 10-year Fracture Risk: FRAX not reported because: Some T-score for Spine Total or Hip Total or Femoral Neck at or below -2.5 Treated for osteoporosis Previous Exams: -- Region Exam Age BMD T-score BMD Change BMD Change Date g/cm2 vs Baseline vs Previous -- AP Spine (L1-L4) 01/19/2025 59 0.841 -1.9 0.9% 0.9% 03/26/2021 55 0.833 -1.9 Total Hip(Left) 01/19/2025 59 0.634 -2.5 -8.6%* -8.6%* 03/26/2021 55 0.694 -2.0 Total Hip(Right) 01/19/2025 59 0.773 -1.4 -1.5% -1.5% 03/26/2021 55 0.785 -1.3 -- *Denotes significance at 95% confidence level, LSC for AP Spine = 0.022 g/cm2, LSC for Total Hip = 0.027 g/cm2 Clinical Information Provided by Patient: Smokes Is being treated for osteoporosis Has used the following medications: Vitamin D, Calcium Patient maximum height was 65 Menopause Age: 45 No regular weight bearing exercise Drinks caffeinated beverages Onset of menses at age 9 Number of children 2 Impression: The patient has osteoporosis, based on the Left Femoral Neck T-score. The patient has risk factors, including: smoking. The BMD for the Total Hip(Left) decreased, changing by -8.6% since the last DXA exam. Discussion: SIGNIFICANT BONE LOSS OBSERVED. Adherence to therapy (including calcium and vitamin D intake) should be assessed. If compliance is not a factor, review management and exclusion of secondary causes of bone loss. It is important to ask patients whether they are taking their medications and to encourage continued and appropriate compliance with their osteoporosis therapies to reduce fracture risk. It is also important to review their risk factors and encourage appropriate calcium and vitamin D intakes, exercise, fall prevention and other lifestyle measures. Follow-Up: Consider a repeat BMD and Vertebral Fracture Assessment (VFA) exam in 2 years or sooner if medically necessary, to reassess this patient's status. Reported by: MAISHA on 01/19/2025 9:34:00 AM. Reviewed, dictated and finalized at location A.
== END 2025-01-19 09:12 | disposition home or self-care (01) ==
LOC: MICIMG 09:14
PROVIDERS: PCP Physician Assistant; Visit Provider Obstetrics & Gynecology
DX: Z12.31 Encounter for screening mammogram for malignant neoplasm of breast (principal); Z78.0 Asymptomatic menopausal state; M81.0 Age-related osteoporosis without current pathological fracture; M85.89 Other specified disorders of bone density and structure, multiple sites
CPT/HCPCS: 77063; 77067; 77080